=== PATIENT | female | born 1990 | race Hispanic/Latino ===

== ENCOUNTER 2019-07-09 13:25 | Observation (INO) | payer BC, OTHER ==
[~2019-07-09] VITALS: Ht 152.4 cm; Wt 85.7 kg
[2019-07-09 14:14] LABS: APPEARANCE,URINE SL CLOUDY (CLEAR); BILIRUBIN,URINE NEGATIVE (NEGATIVE); COLOR,URINE YELLOW (YELLOW); GLUCOSE, URINE (UA) NEGATIVE (NEGATIVE); KETONES,URINE 40 mg/dL (NEGATIVE); LEUKOCYTE ESTERASE ,URINE SMALL (NEGATIVE); NITRATE,URINE NEGATIVE (NEGATIVE); OCCULT BLOOD,URINE NEGATIVE (NEGATIVE); PROTEIN,URINE 30 mg/dL (NEGATIVE)
[2019-07-09 15:01] LABS: BACTERIA,URINE Moderate /HPF (None Seen); MUCUS,URINE Few LPF (None Seen); SQUAMOUS EPITHELIAL CELL,UR Moderate /HPF (0-2)
[2019-07-09] MEDS ORDERED: LACTATED RINGERS 1000ML 1,000 ML IV SCH (15:15)
[2019-07-09] MEDS ORDERED: PROMETHAZINE HCL 25 MG/ML 1ML AMPULE IM SCH (15:15)
== END 2019-07-09 16:45 | disposition home or self-care (01) ==
LOC: EDH 13:25 → LDH 13:40
PROVIDERS: ADMIT Obstetrics & Gynecology; ATTEND Obstetrics & Gynecology
DX: O26.893 Other specified pregnancy related conditions, third trimester (principal); R10.9 Unspecified abdominal pain; O48.0 Post-term pregnancy; Z3A.41 41 weeks gestation of pregnancy
CPT/HCPCS: 81001; 99284; G0378 ×3; J7120; 96360; 96361

== ENCOUNTER 2019-07-25 06:52 | Inpatient (IN) | payer OTHER ==
[~2019-07-25] VITALS: Ht 157.5 cm; Wt 85.7 kg
[2019-07-25] MEDS ORDERED: LACTATED RINGERS 1000ML IV PRN (07:15)
[2019-07-25 07:52] LABS: HEMATOCRIT 33.8 % (36-48); MEAN CORPUSCULAR HEMOGLOBIN 30.5 pg (27.0-33.0); MEAN CORPUSCULAR HGB CONC 34.6 g/dL (32.0-36.0); PLATELET COUNT (AUTO) 131 K/uL (130-400); RED BLOOD CELL COUNT(AUTO) 3.84 MIL/uL (4.00-5.50); WHITE BLOOD COUNT (AUTO) 7.3 K/uL (4.8-10.8)
[2019-07-25 07:54] LABS: APPEARANCE,URINE TURBID (CLEAR); BILIRUBIN,URINE NEGATIVE (NEGATIVE); COLOR,URINE YELLOW (YELLOW); GLUCOSE, URINE (UA) NEGATIVE (NEGATIVE); KETONES,URINE NEGATIVE (NEGATIVE); LEUKOCYTE ESTERASE ,URINE SMALL (NEGATIVE); NITRATE,URINE NEGATIVE (NEGATIVE); OCCULT BLOOD,URINE LARGE (NEGATIVE); PROTEIN,URINE 100 mg/dL (NEGATIVE); UROBILINOGEN,URINE 0.2 mg/dL (0.2-1.0)
[2019-07-25 08:00] LABS: BACTERIA,URINE Moderate /HPF (None Seen); SQUAMOUS EPITHELIAL CELL,UR Moderate /HPF (0-2)
[2019-07-25] MEDS ORDERED: LACTATED RINGERS 1000ML 1,000 ML IV SCH (08:00)
[2019-07-25] MEDS ORDERED: CEFAZOLIN SODIUM 1 GM VIAL IVP PRN (08:00)
[2019-07-25] MEDS ORDERED: OXYTOCIN-LR 20 UNITS/1000 ML 1,000 ML IV SCH (08:00)
[2019-07-25] MEDS ORDERED: DURAMORPH PF1 MG/ML 10ML AMP IV ONE (08:22)
[2019-07-25] MEDS ORDERED: MEPERIDINE-PF 25 MG/ML SYG ONE ×2 (09:14→09:16)
[2019-07-25] MEDS ORDERED: ONDANSETRON HCL 4 MG/2 ML VIAL ONE ×2 (09:27→11:16)
[2019-07-25] MEDS ORDERED: SODIUM CHLORIDE 0.9% 10 ML VIAL IVP PRN (10:00)
[2019-07-25] MEDS ORDERED: OXYTOCIN-LR 20 UNITS/1000 ML 1,000 ML IV PRN (10:00)
[2019-07-25] MEDS ORDERED: DEXTROSE 5 %-0.45 % NACL 1,000 ML IV PRN (10:00)
[2019-07-25] MEDS ORDERED: MEPERIDINE-PF 75 MG/ML SYG IM PRN (10:00)
[2019-07-25] MEDS ORDERED: PROMETHAZINE HCL 25 MG/ML 1ML AMPULE IM PRN (10:00)
[2019-07-25 10:35] VITALS: BP 114/75
--- NOTE | 2019-07-25 10:35 | NUR ---
REPORT RECEIVED FROM Shirin MOSQUEDA RN CHARGE NURSE AND PATIENT CARE WAS TRANSFERED AT THIS TIME. PATIENT WAS TRANSFERED AT THIS TIME FOR CONTINUITY OF CARE. ORIENTED PATIENT TO UNIT AND CALL LIGHT IS WITHIN REACH.
[2019-07-25] MEDS: INSULIN HUMULIN R 100 UNIT/ML 3ML SQ SCH ×2 (11:30→16:30)
[2019-07-25] MEDS ORDERED: NALOXONE HCL 0.4 MG/1 ML ML IVP PRN ×3 (11:45)
[2019-07-25] MEDS ORDERED: ONDANSETRON HCL 4 MG/2 ML VIAL IVP PRN (11:45)
[2019-07-25] MEDS ORDERED: EPHEDRINE SULFATE 50 MG/ML AMPULE IVP PRN (11:45)
[2019-07-25] MEDS ORDERED: DiphenhydrAMINE HCL 50 MG/ML VIAL IVP PRN (11:45)
[2019-07-25] MEDS ORDERED: PNV71COM3 PO (12:26)
[2019-07-25] MEDS ORDERED: FERS325 PO (12:26)
--- NOTE | 2019-07-25 12:35 | NUR ---
COMPLAINS OF STILL HAVING ITCHING TO FACE AND OFFERED BENADRYL AND PATIENT AGREED TO HAVE BENADRYL INSTEAD OF DEMEROL FOR PAIN AT THIS TIME. PATIENT VERBALIZES WANTING TO BE AWAKE TO BE ABLE TO FEED BABY. INFORMED PATIENT OF DEMEROL AND PHENERGAN BEING AVAILABLE FOR PAIN NEEDED FOR SEVERE PAIN.
[2019-07-25 16:00] VITALS: BP 131/72
--- NOTE | 2019-07-25 16:40 | NUR ---
GLUCOSE CHECK DONE AND WAS 73. NO INSULIN COVERAGE REQUIRED.
--- NOTE | 2019-07-25 18:00 | NUR ---
PERICARE GIVEN AND HSIEH CATHETER DRAINED FOR 850CC OF YELLOW URINE. PATIENT ENCOURAGED TO DRINK FLUIDS IF TOLERATING FLUIDS. DENIES ANY NAUSEA OR VOMITING. PIV IS PATENT. DENIES PAIN AT THIS TIME, VERBALIZES DOING OKAY.
[2019-07-25 20:05] VITALS: BP 118/66
--- NOTE | 2019-07-25 20:15 | NUR ---
STATUS PT C/O FEELING WARM, PERSPIRING, GLUCOMETER DONE , RESULTS 96, REMOVED BLANKETS, COLD CLOTHS APPLIED TO FOREHEAD, CRANBERRY/APPLE JUICE GIVEN,VERBALIZED FELT BETTER, TRYING TO BREASTFEED, ENCOURAGED TO USE IS, TURN TO SIDES FREQUENTLY, AGNIESZKA CARE GIVEN, TOLERATED WELL, ENCOURAGED TO CALL NURSE FOR ANY NEEDS, SPOUSE AT BEDSIDE Addendum: 07/26/19 at 0153 by DEA BRICEÑO LVN Amended: Links added.
[2019-07-25 23:27] VITALS: BP 112/77
[2019-07-26] VITALS (8 sets, daily range): BP systolic 117–141; BP diastolic 61–90
[2019-07-26] MEDS ORDERED: LANOLIN 30GM OINTMENT TP PRN (01:15)
[2019-07-26] MEDS ORDERED: ACETAMINOPHEN EXTRA STRENGTH 500 MG TABLET PO PRN (01:15)
[2019-07-26] MEDS ORDERED: BISACODYL 10 MG SUPP.RECT RC PRN (01:15)
[2019-07-26] MEDS: ACETAMINOPHEN-CODEINE 300/30MG TAB PO PRN ×2 (05:02→23:00)
[2019-07-26 05:20] LABS: HEMATOCRIT 33.6 % (36-48); MEAN CORPUSCULAR HEMOGLOBIN 30.1 pg (27.0-33.0); MEAN CORPUSCULAR HGB CONC 33.6 g/dL (32.0-36.0); MEAN CORPUSCULAR VOLUME 89.6 fL (79-99); PLATELET COUNT (AUTO) 113 K/uL (130-400); RED BLOOD CELL COUNT(AUTO) 3.75 MIL/uL (4.00-5.50); RED CELL DISTRIBUTION WIDTH 12.7 % (11.0-15.5); WHITE BLOOD COUNT (AUTO) 8.2 K/uL (4.8-10.8)
[2019-07-26] MEDS: IBUPROFEN 600 MG TABLET PO PRN ×2 (07:52→16:57)
[2019-07-26] MEDS: INSULIN HUMULIN R 100 UNIT/ML 3ML SQ SCH ×3 (11:30→21:00)
[2019-07-26 13:11] LABS: HEPATITIS Bs ANTIGEN SCREEN P Negative (Negative)
[2019-07-26] MEDS ORDERED: CALDOLOR 800MG+NS 250ML 250 ML IV SCH (14:00)
[2019-07-26] MEDS: SIMETHICONE 80 MG TAB.CHEW PO PRN ×2 (16:56→21:41)
[2019-07-26] MEDS: DOCUSATE SODIUM 100 MG CAP PO SCH (21:40)
[2019-07-27] MEDS: MEASLES/MUMPS/RUBELLA VACCINE, LIVE 0.5 ML/VIAL SQ SCH ×2 (01:15→01:21)
[2019-07-27 02:46] VITALS: BP 128/69
[2019-07-27 07:25] VITALS: BP 119/69
[2019-07-27] MEDS: INSULIN HUMULIN R 100 UNIT/ML 3ML SQ SCH (07:25)
[2019-07-27] MEDS: ACETAMINOPHEN-CODEINE 300/30MG TAB PO PRN (07:41)
[2019-07-27] MEDS: DOCUSATE SODIUM 100 MG CAP PO SCH (08:46)
[2019-07-27] MEDS: SIMETHICONE 80 MG TAB.CHEW PO PRN (08:46)
--- NOTE | 2019-07-27 10:10 | NUR ---
Verbal and written discharge instructions given, prescription given, informed of the follow up appointment, informed to call the doctor for any concerns, pt voiced understanding to all things discussed. Addendum: 07/27/19 at 1318 by HNANA BANERJEE RN Amended: Links added.
[2019-07-27 11:14] VITALS: BP 122/75
--- NOTE | 2019-07-27 11:55 | NUR ---
pt is dismissed, brought to private car via wheelchair, baby on her arms. pt is in stable condition Addendum: 07/27/19 at 1319 by HANNA BANERJEE RN Amended: Links added.
== END 2019-07-27 11:55 | disposition home or self-care (01) | DRG 788 ==
LOC: EDH 06:52 → OBSVTOIN 06:53 → LDH 06:53 → WSH 10:22
PROVIDERS: ADMIT Obstetrics & Gynecology; ATTEND Obstetrics & Gynecology
PROC: 10D00Z1 Extraction of Products of Conception, Low, Open Approach (ICD-10-PCS; principal; 2019-07-25 08:00)
DX: O42.92 Full-term premature rupture of membranes, unspecified as to length of time between rupture and onset of labor (principal); O99.02 Anemia complicating childbirth; O24.92 Unspecified diabetes mellitus in childbirth; O69.81X0 Labor and delivery complicated by cord around neck, without compression, not applicable or unspecified; D64.9 Anemia, unspecified; O32.1XX0 Maternal care for breech presentation, not applicable or unspecified; Z37.0 Single live birth; Z3A.37 37 weeks gestation of pregnancy
CPT/HCPCS: 36415; 59510; 76815; 81001; 82948; 85027; 86592; 86850; 86900; 86901; 87340; A4344; G0378; J0690; J1200; J2175; J2274; J2405; J2590; J7120

== ENCOUNTER 2024-06-19 13:46 | Emergency (ER) | payer BC, OTHER ==
[~2024-06-19] VITALS: Ht 149.9 cm; Wt 88.5 kg
[~2024-06-19 13:46] MED LIST: FERS325 PO; PNV71COM3 PO
--- NOTE | 2024-06-19 13:59 | EKG ---
[facility] Test Date: 2024-06-19 Test Time: 13:57:12 Pat Name: MARYANN RALPH Department: ED Room: Gender: F Materials Intern: [id number] : 1990 Requested By: JACKIE WAITE Order Number: [id number] Reading MD: Tera Rodriguez Measurements Intervals [place] Rate: 76 P: 12 [place]: 113 QRS: 10 QRSD: 95 T: 7 QT: 398 QTc: 448 Interpretive Statements Sinus rhythm Low voltage, precordial leads Compared to ECG 11/10/2015 22:47:11 Low QRS voltage now present Left ventricular hypertrophy no longer present T-wave abnormality no longer present Electronically Signed On 06-19-2024 17:50:28 YACHT BUILDER by Tera Rodriguez Please click the below link to view image of tracing.
--- NOTE | 2024-06-19 14:41 | ERN ---
General Chief Complaint: Dental Problem Stated Complaint: LT JAW PAIN Time Seen by MD: 13:51 Source: patient History of Present Illness Initial Comments Patient is a 34-year-old female coming in to be evaluated for left jaw pain. Patient states that the pain has been ongoing for four days. Long with a she states that every now and then she has had mild chest discomfort in his here for evaluation. Allergies: Coded Allergies: No Known Allergies (Unverified Allergy, Unknown, 07/09/19) Home Meds Reported Medications Ferrous Sulfate (Ferrous Sulfate) 325 Mg Ectab, 325 MG PO DAILYLUNCH, TAB.EC 07/25/19 Pnv76/Iron,Carb&Glu/FA/Dss/Dha (Citranatal Dha Pack) 1 Each Combo..pkg, 1 EACH PO DAILYLUNCH, COMB.PKG 07/25/19 Past Medical History Past Medical History: No Pertinent History Past Surgical History: None, Female( History) LMP: May 16, 2024 ROS Dictation CONSTITUTIONAL: No chills, no fever, no weakness, no diaphoresis, no malaise. HEAD/FACE: No signs of trauma. EENT: No eye pain, no blurred vision, no tearing, no double vision, no ear pain, no ear discharge, no nose pain, no nasal congestion, no throat pain, no throat swelling, no mouth pain. RESPIRATORY: No cough, no orthopnea, no SOB, no stridor, no wheezing. CARDIOVASCULAR: No chest pain, no edema, no palpitations, no syncope. GASTROINTESTINAL/ABDOMINAL: No abdominal pain, no constipation, no diarrhea, no nausea, no vomiting. GENITOURINARY: No abnormal discharge, no dysuria, no frequent urination, no hematuria. No complaints of pain in the genitals. MUSCULOSKELETAL: No back pain, no gout, no joint pain, no joint swelling, no muscle pain, no muscle stiffness, no neck pain. INTEGUMENTARY: No change in color, no change in hair/nails, no dryness, no lesion, no lumps, no rash. NEUROLOGICAL/PSYCH: No anxiety, not depressed, no emotional problem, no he adache, no numbness, no pre-existing deficit, no history of seizures, no tremors, no weakness. HEMATOLOGIC/LYMPHATIC: Not anemic, no history of blood clots, no apparent bleeding, no bruising, glands not swollen. All Systems Negative, Except as Noted. Physical Exam Physical Exam Dictation VITAL SIGNS: Reviewed. GENERAL APPEARANCE: Alert, oriented x3, no acute distress, obese. HEAD AND FACE: Non-traumatic. EYES: PERRL, pink conjunctivas, eyelid no trauma, anterior chamber clear. EARS: Pinnas intact and no signs of trauma or erythema. Ear canals clear and no discharge. TMs no erythema. NOSE: No discharge, no bleeding. OROPHARYNX: Mouth normal, teeth no caries, tongue pink. Pharynx clear, no erythema. Tonsils no exudates, no abscesses noted. Mucous membrane moist. NECK: Supple, non-tender, no thyromegaly, no masses, no JVD, no bruits. BREAST: Deferred. CHEST: No tenderness, no crepitus, no paradoxical movement, no retractions. LUNGS: Clear, well-ventilated, symmetric, no rales, no wheezing, no rhonchi, no stridor, good breath sounds bilaterally. HEART: Regular rate, regular rhythm, no murmur, no gallops. VASCULAR: No peripheral edema. ABDOMEN: Soft, positive bowel sounds, nondistended, no guarding, nontender, no rebound, no masses no hepatomegaly, no splenomegaly, no Varela's sign, no hernias. RECTAL: Deferred. GENITAL: Deferred. NEUROLOGICAL: Normal speech, gross motor function intact, gross sensory function intact. MUSCULOSKELETAL: Neck nontender, full range of motion, back nontender, full range of motion. Left jaw tenderness on palpation EXTREMITIES: Nontender, full range of motion. SKIN: Color pink, dry, no turgor, no rash, no lacerations, no abrasions, no contusions. LYMPHATICS: Deferred. Results Laboratory and Microbiology Labs Reviewed?: Yes EKG/XRAY/US/CT/MRI EKG Comment 06/19/2024 time 1:57 p.m. Ventricular rate 76 Sinus rhythm [place] [address] wave elevation or depression MDM MDM: Differential diagnosis: Rationale: Tests considered and ordered secondary to shared decision making include: Previous outside records reviewed: Old ER visits. Risk of complication and/or morbidity or mortality of patient management: None Medications-Per medication reconciliation Need for hospitalization: Patient does not meet criteria for hospitalization. Need for emergency major/minor surgery: No There are no social concerns with this patient. Prescription drug management Prescriptions will include symptomatic care Patient's prior external medical records from other ER visits were reviewed by me as indicated. Prior testing and results from previous visits were reviewed. Prior tests were taken into account with medical decision making and resource utilization, independent historian/historians were used to obtain complete medical history. I independently interpreted the test that were performed, results were reviewed by me and considered findings on radiology if ordered. Medical management and examination interpretation discussions were had by me with other qualified healthcare professionals as indicated for the patient's care. ED Course Orders Procedure Category Date Status Time 12 Lead Ekg Tracing- EKG 06/19/24 Complete Technical 13:53 Naproxen (Naprosyn) PHA 06/19/24 Complete 14:00 Orphenadrine Citrate PHA 06/19/24 Complete (Norflex) 14:00 Current Medications Medications (Trade) Dose Ordered Sig/Fermin Route PRN Reason Start Time Stop Time Status Last Admin Dose Admin Naproxen (Naprosyn) 500 mg ONCE ONCE PO 06/19/24 14:00 06/19/24 14:01 DC 06/19/24 14:52 Orphenadrine Citrate (Norflex) 60 mg ONCE ONCE IM 06/19/24 14:00 06/19/24 14:01 DC 06/19/24 14:52 Vital Signs Date Time Temp Pulse Resp B/P (MAP) Pulse Ox O2 Delivery O2 Flow Rate FiO2 06/19/24 13:48 99.9 92 16 142/84 99 Room Air 0 DX & DISP Disposition: Discharge Departure Impression: Primary Impression: TMJ (sprain of temporomandibular joint) Additional Impression: Muscle strain Condition: Stable Scripts Naproxen (Naproxen) 375 Mg Tablet. 375 MG PO BID for 7 Days, #14 TAB Prov: JACKIE WAITE MD 06/19/24 Methocarbamol (Robaxin) 750 Mg Tab 1 TAB PO BID for 7 Days, #14 TAB 0 Refills Prov: JACKIE WAITE MD 06/19/24 Additional Instructions: FOLLOW-UP WITH PRIMARY CARE PROVIDER IN 1 TO 2 DAYS. TAKE MEDICATIONS DIRECTED HERE IN THE EMERGENCY ROOM. OKAY TO CONTINUE HOME MEDICATIONS UNLESS OTHERWISE DISCUSSED DURING YOUR VISIT IN THE EMERGENCY ROOM TODAY. RETURN TO YOUR NEAREST EMERGENCY ROOM IF SYMPTOMS WORSEN OR IF THERE IS NO IMPROVEMENT. CALL 911 IF YOU NEED IMMEDIATE ASSISTANCE. TAKE TYLENOL [id number] NEEDED AND IF NO CONTRAINDICATIONS ARE PRESENT. INCREASE ORAL HYDRATION. A WOUND CULTURE OR URINE CULTURE WAS ORDERED HERE IN THE EMERGENCY ROOM DEPARTMENT PLEASE FOLLOW-UP WITH PRIMARY CARE PROVIDER AND ADVISE THEM TO GET REPEAT PORTS FROM OUR FACILITY. IF YOU HAD ANY CHARLY WRAP/SPLINTS THAT WERE APPLIED HERE, PLEASE DO NOT REMOVE THEM UNTIL YOU SEE YOUR PRIMARY CARE OR SPECIALTY. Referrals: Referrals: MARQUIS WEI NP (PCP) Time of Disposition: 15:22 JACKIE WAITE MD Jun 19, 2024 14:41
[2024-06-19] MEDS: ORPHENADRINE 60MG/2ML IM ONE (14:52)
[2024-06-19] MEDS: NAPROXEN 500 MG TABLET PO ONE (14:52)
[2024-06-19] MEDS ORDERED: METH-662 PO (15:23)
[2024-06-19] MEDS ORDERED: NAPR-1505 PO (15:23)
[2024-06-19 15:51] VITALS: BP 137/81; PULSE 88; RESP 16; TEMP 99; O2SAT 99
== END 2024-06-19 15:53 | disposition home or self-care (01) ==
LOC: EDH 13:46
DX: S03.42XA Sprain of jaw, left side, initial encounter (principal); M26.602 Left temporomandibular joint disorder, unspecified; X58.XXXA Exposure to other specified factors, initial encounter; Y93.89 Activity, other specified; Y92.89 Other specified places as the place of occurrence of the external cause; Y99.8 Other external cause status
CPT/HCPCS: 93005; 96372; 99284; J2360